=== PATIENT | male | born 1940 | race Caucasian/White ===

== ENCOUNTER 2017-12-06 15:26 | Emergency (ER) | payer OTHER ==
--- NOTE | 2017-12-06 15:39 | EDPHY ---
H & P Stated Complaint: VASQUES X 2 MONTHS TRAVELING SOON SO NEEDS TO BE CHECKED OUT Time Seen by Provider: 12/06/17 15:45 HPI/ROS: CHIEF COMPLAINT: Headache HISTORY OF PRESENT ILLNESS: This is a 77-year-old male in general good health who presents with 2 months of bifrontal headache. It was his impression that this was likely sinus disease and he has been taking daily Claritin and Sudafed for almost the past 2 months. He denies sinus drainage, fever, cough, or shortness of breath. Aside from an occasional naproxen he has not used any other medication to treat this headache. He tells me that it is a constant dull aching sensation across his forehead. He rates it as a "3/10". It is worse when he coughs or sneezes. He has had no head trauma. He does not use any blood thinners. No change in vision, confusion, difficulty with speech, numbness, or weakness. He has not had any tearing or flushing with this headache. REVIEW OF SYSTEMS: A ten system review of systems was performed and is negative with the exception of the items mentioned in the HPI. Past medical history: Obstructive sleep apnea Past surgical history: Right ankle replacement Family history: Father with coronary artery disease, mother at age 94. Social history: He works as a resource management specialist. Has a 14-year-old son, shared custody. No tobacco use. Social alcohol use. No illicits. General Appearance: Alert. Vital signs reviewed. Eyes: Pupils equal and round, no conjunctival injection, no discharge. Anicteric. No temporal artery tenderness. ENT, Mouth: Mucous membranes are moist, no oropharyngeal erythema or edema. Neck: No lymphadenopathy, supple. Respiratory: Lungs are clear to auscultation; no wheezes, rales, or rhonchi. Cardiovascular: Regular rate and rhythm; no murmur, rub, or gallop. Gastrointestinal: Abdomen is soft and nontender, no masses or organomegaly, bowel sounds normal. Skin: Warm and dry, no rashes on exposed skin, normal color. Back: Nontender to palpation over the thoracolumbar spine. No CVAT. Extremities: No lower extremity edema, no calf tenderness or swelling. Neurological: Alert and oriented. Moving all four extremities easily and equally. Cranial nerves II through XII are examined and are intact (visual acuity not tested). Strength is 5 over 5 bilaterally with testing of all major motor groups. Sensation is intact to light touch over all 4 extremities. Deep tendon reflexes are 2+ in the biceps and knees bilaterally. Gait is normal. Hgofbz-xu-[id number] is performed accurately. Psychiatric: Normal affect. - Personal History Current Tetanus Diphtheria and Acellular Pertussis (TDAP): Yes - Medical/Surgical History Hx Asthma: No Hx Chronic Respiratory Disease: No Hx Diabetes: No Hx Cardiac Disease: No Hx Renal Disease: No Hx Cirrhosis: No Hx Alcoholism: No Hx HIV/AIDS: No Hx Splenectomy or Spleen Trauma: No Other PMH: depression, anxiety, GARETH, - Social History Smoking Status: Former smoker Constitutional: Initial Vital Signs Temperature (C) 37 C 12/06/17 15:29 Heart Rate 98 12/06/17 15:29 Respiratory Rate 18 12/06/17 15:29 Blood Pressure 166/75 H 12/06/17 15:29 O2 Sat (%) 95 12/06/17 15:29 O2 Delivery Mode Room Air Allergies/Adverse Reactions: No Known Allergies Allergy (Verified 12/06/17 15:29) Home Medications: Medication Instructions Recorded Alfuzosin Hcl [Alfuzosin Hcl Er] 10 mg PO DAILY 01/24/16 Lamotrigine [Lamictal Xr] 250 mg PO DAILY 01/24/16 Modafinil [Provigil 100 mg (*)] 200 mg PO DAILY PRN #0 tab 01/24/16 clonazePAM [Klonopin (*)] 0.5 mg PO DAILY #0 tab 01/24/16 oxyCODONE IR [Oxycodone Ir (*)] 5 - 15 mg PO Q3HRS PRN #0 tab 01/24/16 Doxycycline Monohydrate 02/02/16 Medical Decision Making ED Course/Re-evaluation: Patient received 650 mg Tylenol in the emergency department. Persistent VASQUES--no temporal artery tenderness or visual problems, doubt temporal arteritis (VASQUES is bilateral), symptoms not consistent with cluster VASQUES, no trauma and CT negative for SDH, SAH, or evidence of mass, nothing to suggest infectious etiology. I reviewed the CT scan of his brain and discussed it with Dr. Solitario Cat. This study is normal. There is no evidence of sinus disease. I am recommending symptomatic treatment, follow up with his PCP, and follow up with a neurologist as needed. He has a normal neurologic exam and I do not feel that additional imaging or evaluation is needed today. I have advised him to discontinue the OTC sinus medications. I am recommending tylenol. He is aware that his blood pressure was elevated today. He will have it rechecked. I stressed importance of following up on BP and on persistent headache. I do not think that his VASQUES is due to hypertension and he does not think that his BP is usually high. Differential Diagnosis: Headache including but not limited to subarachnoid hemorrhage, migraine headache , tension headache and infectious causes such as meningitis, pharyngitis and sinusitis. - Data Points Medications Given: Discontinued Medications Acetaminophen (Tylenol) 650 mg PO EDNOW ONE Stop: 12/06/17 16:12 Last Admin: 12/06/17 16:18 Dose: 650 mg Departure - Departure Disposition: Home, Routine, Self-Care Clinical Impression: Headache Qualifiers: Headache type: unspecified Headache chronicity pattern: chronic headache Intractability: intractable Qualified Code(s): R51 - Headache Condition: Good Instructions: Acute Headache (ED) Additional Instructions: As we discussed, the CT scan of her head does not reveal a cause for your headache. Your sinuses look normal. I recommend that you discontinue the sinus medications you have been taking. I also recommend that you start taking pvak-hhv-[id number] medication for treatment of the headache pain. I am providing you with some dosing guidelines. I am referring you to the communication center coordinator neurologist or you may see a neurologist through the [facility] system. You should also follow up with your primary care provider. If you have a change in your symptoms-- worsening headache, vision changes, new numbness or weakness--you should be re- evaluated immediately. Adult Pain & Fever Control: We recommend Acetaminophen (Tylenol) and Ibuprofen (Motrin,Advil) for pain and fever control. When fever is high or pain severe, both drugs can be used at the same time, but at different intervals. Please note the time differences. Your dose is: Acetaminophen 650mg every 4 to 6 hours Ibuprofen 400mg every 8 hours with food OR Naproxen Sodium (Aleve) every 12 hours. Note: do not take Acetaminophen with Hydrocodone (Vicodin, Lortab) or Oycodone (Percocet). These medications also contain Acetaminophen. No more than 3000mg of Acetaminophen should be taken in 24 hours (for an adult). Referrals: NOLBERTO LINARES [Other] - As per Instructions Bang Henley DO [Doctor of Osteopathy] - As per Instructions
[2017-12-06] MEDS ORDERED: ACETAMINOPHEN 325 MG TAB PO ONE (16:11)
[2017-12-06 17:45] VITALS: BP 149/91
== END 2017-12-06 17:45 | disposition home or self-care (01) ==
DX: R51 Headache (principal); G47.33 Obstructive sleep apnea (adult) (pediatric); F32.9 Major depressive disorder, single episode, unspecified; F41.9 Anxiety disorder, unspecified

== ENCOUNTER 2018-03-05 16:10 | Observation (INO) | payer OTHER ==
[2018-03-05] MEDS ORDERED: NS 1,000 ML IV ONE (17:48)
[2018-03-05 17:57] LABS: PLATELET COUNT 218 10^3/uL (150-400)
[2018-03-05 18:05] LABS: INR 1.03 (0.83-1.16); PROTIME(PATIENT) 13.7 SEC (12.0-15.0)
[2018-03-05] MEDS ORDERED: ONDANSETRON 4 MG/2 ML VIAL IVP PRN (19:02)
[2018-03-05] MEDS ORDERED: ACETAMINOPHEN 325 MG TAB PO PRN (19:02)
[2018-03-05] MEDS ORDERED: ONDANSETRON DISINTEGRATING 4 MG TAB PO PRN (19:02)
[2018-03-05] MEDS ORDERED: PEG 3350/NA SULF,BICARB,CL/KCL (GAVILYTE-G) 4000 ML BTL PO ONE (19:04)
--- NOTE | 2018-03-05 19:49 | PDGENHP ---
<Almaz Steel - Last Filed: 03/05/18 19:56> History and Physical - Chief Complaint Hematochezia - History of Present Illness 77 y/o male presents to the emergency room with c/o hematochezia. Onset was yesterday and stool is described as maroon color and formed. He has had 3-4 bowel movements, experiencing the same maroon color stool. He has never had this before. He denies kenji blood. No pain defecating. His last colonoscopy was 3 years ago in [place]; a benign polyp was removed and was instructed to repeat procedure in 5 years. He reports eating well-cooked [place] and had red wine two nights ago. He denies nausea, vomiting, abdominal pain, dysuria, hematuria, fevers, chills. He does have a history of external hemorrhoids and constipation - last hemorrhoids episode was last month and he denies constipation currently. Stool occult test positive for blood. Past Medical/Surgical History 1. Hx hemorrhoids 2. Hx constipation 3. Anxiety 4. Depression 5. Sleep apnea w/ CPAP 6. BPH Social 1. Moved from [place], [place] 3 years ago to be closer to his teenage son 2. 3. Denies tobacco or illicit drug use. Rarely drinks alcohol. Approximately 2 drinks/week. 4. Employed as a recruiting consultant, studying for PhD in Organizational Development Vital Signs 135/93 83 HR 16 Respirations 36.6c 94% RA History Information - Allergies/Home Medication List Allergies/Adverse Reactions: No Known Allergies Allergy (Verified 03/05/18 16:13) Home Medications: Alfuzosin HCl [Alfuzosin HCl ER] 10 mg PO HS 03/05/18 [Last Taken 03/04/18] Modafinil [Provigil 100 mg (*)] 50 - 100 mg PO DAILY PRN 03/05/18 [Last Taken Unknown] clonazePAM [Klonopin (*)] 0.25 mg PO DAILY 03/05/18 [Last Taken Unknown] clonazePAM [Klonopin (*)] 0.25 mg PO DAILY PRN 03/05/18 [Last Taken Unknown] lamoTRIgine [LamICTAL 100 MG (*)] 100 mg PO HS 03/05/18 [Last Taken 03/04/18] traZODone [traZODONE 100MG (*)] 200 mg PO HS 03/05/18 [Last Taken Unknown] I have personally reviewed and updated: family history, medical history, social history, surgical history Past Medical History: Sere HPI List - Surgical History Additional surgical history: See HPI List - Family History Positive for: non-pertinent - Social History Smoking Status: Former smoker Alcohol Use: Rarely Drug Use: None Review of Systems Review of Systems: ROS: 10pt was reviewed & negative except for what was stated in HPI & below Constitutional: Reports: no symptoms EENMT: Reports: no symptoms Cardiac: Reports: no symptoms Respiratory: Reports: no symptoms Gastrointestinal: Reports: blood streaked stools Genitourinary: Reports: no symptoms Muscolosketal: Reports: no symptoms Skin: Reports: no symptoms Neurological: Reports: no symptoms (Hx of anxiety and depression; not currently experiencing these symptoms; takes medications) Hematologic/Lymphatic: Reports: no symptoms Immunologic/Allergy: Reports: no symptoms Physical Exam Physical Exam: Lab data reviewed and was unremarkable. Temp Pulse Resp BP Pulse Ox 36.6 C 76 16 150/89 H 98 03/05/18 16:14 03/05/18 19:30 03/05/18 19:30 03/05/18 19:30 03/05/18 19:30 Constitutional: no apparent distress, appears nourished, not in pain Eyes: PERRL, anicteric sclera, EOMI Ears, Nose, Mouth, Throat: moist mucous membranes, hearing normal, ears appear normal, no oral mucosal ulcers Cardiovascular: regular rate and rhythym, no murmur, rub, or gallop, No edema Peripheral Pulses: 2+: dorsalis-pedis (R) (Radial 2+), dorsalis-pedis (L) ( Radial 2+) Respiratory: no respiratory distress, no rales or rhonchi, clear to auscultation Gastrointestinal: normoactive bowel sounds, soft, non-tender abdomen, no palpable masses Genitourinary: no bladder fullness, no bladder tenderness Skin: warm, normal color, no rashes or abrasions, no fluctuance, no induration, No mottled Musculoskeletal: full muscle strength, no muscle tenderness, normal joint ROM, no joint effusions Neurologic: AAOx3, sensation intact bilaterally, CN II-XII Intact Psychiatric: interacting appropriately, not anxious, not encephalopathic, thought process linear Lymph, Heme, Immunologic: no cervical LAD, no supraclavicular LAD Lab Data & Imaging Review 03/05/18 17:30 03/05/18 17:30 WBC 5.04 10^3/uL (3.80-9.50) 03/05/18 17:30 RBC 4.82 10^6/uL (4.40-6.38) 03/05/18 17:30 Hgb 15.4 g/dL (13.7-17.5) 03/05/18 17:30 Hct 44.4 % (40.0-51.0) 03/05/18 17:30 MCV 92.1 fL (81.5-99.8) 03/05/18 17:30 MCH 32.0 pg (27.9-34.1) 03/05/18 17:30 MCHC 34.7 g/dL (32.4-36.7) 03/05/18 17:30 RDW 13.3 % (11.5-15.2) 03/05/18 17:30 Plt Count 218 10^3/uL (150-400) 03/05/18 17:30 MPV 9.0 fL (8.7-11.7) 03/05/18 17:30 Neut % (Auto) 61.1 % (39.3-74.2) 03/05/18 17:30 Lymph % (Auto) 24.4 % (15.0-45.0) 03/05/18 17:30 Tate % (Auto) 7.1 % (4.5-13.0) 03/05/18 17:30 Eos % (Auto) 5.8 % (0.6-7.6) 03/05/18 17:30 Baso % (Auto) 1.4 % (0.3-1.7) 03/05/18 17:30 Nucleat RBC Rel Count 0.0 % (0.0-0.2) 03/05/18 17:30 Absolute Neuts (auto) 3.08 10^3/uL (1.70-6.50) 03/05/18 17:30 Absolute Lymphs (auto) 1.23 10^3/uL (1.00-3.00) 03/05/18 17:30 Absolute Monos (auto) 0.36 10^3/uL (0.30-0.80) 03/05/18 17:30 Absolute Eos (auto) 0.29 10^3/uL (0.03-0.40) 03/05/18 17:30 Absolute Basos (auto) 0.07 10^3/uL (0.02-0.10) 03/05/18 17:30 Absolute Nucleated RBC 0.00 10^3/uL (0-0.01) 03/05/18 17:30 Immature Gran % 0.2 % (0.0-1.1) 03/05/18 17:30 Immature Gran # 0.01 10^3/uL (0.00-0.10) 03/05/18 17:30 PT 13.7 SEC (12.0-15.0) 03/05/18 17:30 INR 1.03 (0.83-1.16) 03/05/18 17:30 APTT 24.4 SEC (23.0-38.0) 03/05/18 17:30 Sodium 139 mEq/L (135-145) 03/05/18 17:30 Potassium 4.7 mEq/L (3.5-5.2) 03/05/18 17:30 Chloride 111 mEq/L (97-110) H 03/05/18 17:30 Carbon Dioxide 23 mEq/l (22-31) 03/05/18 17:30 Anion Gap 5 mEq/L (6-14) L 03/05/18 17:30 BUN 21 mg/dL (7-23) 03/05/18 17:30 Creatinine 1.3 mg/dL (0.7-1.3) 03/05/18 17:30 Estimated GFR 54 03/05/18 17:30 Glucose 93 mg/dL (70-100) 03/05/18 17:30 Calcium 9.1 mg/dL (8.5-10.4) 03/05/18 17:30 Total Bilirubin 0.4 mg/dL (0.1-1.4) 03/05/18 17:30 Conjugated Bilirubin 0.3 mg/dL (0.0-0.5) 03/05/18 17:30 Unconjugated Bilirubin 0.1 mg/dL (0.0-1.1) 03/05/18 17:30 AST 21 IU/L (17-59) 03/05/18 17:30 ALT 32 IU/L (21-72) 03/05/18 17:30 Alkaline Phosphatase 93 IU/L (38-126) 03/05/18 17:30 Total Protein 6.2 g/dL (6.3-8.2) L 03/05/18 17:30 Albumin 3.6 g/dL (3.5-5.0) 03/05/18 17:30 Stool Occult Bld Scrn POSITIVE (NEGATIVE) H 03/05/18 17:45 Assessment & Plan Plan: 77 y/o male presents with acute hematochezia with unknown etiology. VSS and labwork unremarkable. 1. Hematochezia: Dr. Bullock will perform colonoscopy tomorrow -Clear liquid diet now, NPO at midnight tonight -Bowel prep -If any nausea, anti-emetics PRN -CBC/CMP tomorrow -IV NS -Q4 Vital signs 2.Anxiety: may continue of Klonopin 3.BPH: may continue of alfuzosin 4.Depression: may continue lamotrigine 5.Sleep apnea: hold modafinil. If he has difficulty sleeping tonight, he may continue trazodone. Diet: Clears now, NPO at midnight tonight VTE ppx: SCDs Code: Full Dispo: Admit to obs <Lexi Villatoro - Last Filed: 03/06/18 04:15> History and Physical - History of Present Illness Review of Systems Review of Systems: Physical Exam Physical Exam: Temp Pulse Resp BP Pulse Ox 36.3 C 79 16 136/84 H 92 03/06/18 03:51 03/06/18 03:51 03/06/18 03:51 03/06/18 03:51 03/06/18 03:51 Lab Data & Imaging Review 03/05/18 17:30 03/05/18 17:30 WBC 5.04 10^3/uL (3.80-9.50) 03/05/18 17:30 RBC 4.82 10^6/uL (4.40-6.38) 03/05/18 17:30 Hgb 15.4 g/dL (13.7-17.5) 03/05/18 17:30 Hct 44.4 % (40.0-51.0) 03/05/18 17:30 MCV 92.1 fL (81.5-99.8) 03/05/18 17:30 MCH 32.0 pg (27.9-34.1) 03/05/18 17:30 MCHC 34.7 g/dL (32.4-36.7) 03/05/18 17:30 RDW 13.3 % (11.5-15.2) 03/05/18 17:30 Plt Count 218 10^3/uL (150-400) 03/05/18 17:30 MPV 9.0 fL (8.7-11.7) 03/05/18 17:30 Neut % (Auto) 61.1 % (39.3-74.2) 03/05/18 17:30 Lymph % (Auto) 24.4 % (15.0-45.0) 03/05/18 17:30 Tate % (Auto) 7.1 % (4.5-13.0) 03/05/18 17:30 Eos % (Auto) 5.8 % (0.6-7.6) 03/05/18 17:30 Baso % (Auto) 1.4 % (0.3-1.7) 03/05/18 17:30 Nucleat RBC Rel Count 0.0 % (0.0-0.2) 03/05/18 17:30 Absolute Neuts (auto) 3.08 10^3/uL (1.70-6.50) 03/05/18 17:30 Absolute Lymphs (auto) 1.23 10^3/uL (1.00-3.00) 03/05/18 17:30 Absolute Monos (auto) 0.36 10^3/uL (0.30-0.80) 03/05/18 17:30 Absolute Eos (auto) 0.29 10^3/uL (0.03-0.40) 03/05/18 17:30 Absolute Basos (auto) 0.07 10^3/uL (0.02-0.10) 03/05/18 17:30 Absolute Nucleated RBC 0.00 10^3/uL (0-0.01) 03/05/18 17:30 Immature Gran % 0.2 % (0.0-1.1) 03/05/18 17:30 Immature Gran # 0.01 10^3/uL (0.00-0.10) 03/05/18 17:30 PT 13.7 SEC (12.0-15.0) 03/05/18 17:30 INR 1.03 (0.83-1.16) 03/05/18 17:30 APTT 24.4 SEC (23.0-38.0) 03/05/18 17:30 Sodium 139 mEq/L (135-145) 03/05/18 17:30 Potassium 4.7 mEq/L (3.5-5.2) 03/05/18 17:30 Chloride 111 mEq/L (97-110) H 03/05/18 17:30 Carbon Dioxide 23 mEq/l (22-31) 03/05/18 17:30 Anion Gap 5 mEq/L (6-14) L 03/05/18 17:30 BUN 21 mg/dL (7-23) 03/05/18 17:30 Creatinine 1.3 mg/dL (0.7-1.3) 03/05/18 17:30 Estimated GFR 54 03/05/18 17:30 Glucose 93 mg/dL (70-100) 03/05/18 17:30 Calcium 9.1 mg/dL (8.5-10.4) 03/05/18 17:30 Total Bilirubin 0.4 mg/dL (0.1-1.4) 03/05/18 17:30 Conjugated Bilirubin 0.3 mg/dL (0.0-0.5) 03/05/18 17:30 Unconjugated Bilirubin 0.1 mg/dL (0.0-1.1) 03/05/18 17:30 AST 21 IU/L (17-59) 03/05/18 17:30 ALT 32 IU/L (21-72) 03/05/18 17:30 Alkaline Phosphatase 93 IU/L (38-126) 03/05/18 17:30 Total Protein 6.2 g/dL (6.3-8.2) L 03/05/18 17:30 Albumin 3.6 g/dL (3.5-5.0) 03/05/18 17:30 Stool Occult Bld Scrn POSITIVE (NEGATIVE) H 03/05/18 17:45 Assessment & Plan Assessment: GI bleed (Acute) Plan: Physician Addendum: Agree w/ above. 77yo M w/ hematochezia, nl colonoscopy 3ya. Plan for colonoscopy in AM.
[2018-03-05] MEDS ORDERED: NS 1,000 ML IV SCH (20:15)
--- NOTE | 2018-03-05 22:13 | EDPHY ---
H & P Time Seen by Provider: 03/05/18 16:48 HPI/ROS: Chief complaint. Dark stools HPI. Patient is a 77-year-old male who presents emergency department with complaint of deep maroon-colored stools that began yesterday. He has had multiple bowel movements all which are deep maroon in color. They are not he has no diarrhea. The stools are solid. He does have hemorrhoids but when he has an inflamed hemorrhoid is bright red blood on toilet paper and this is different. He has no abdominal pain or nausea vomiting. No history of colon issues. Last colonoscopy 3 years ago and other than a benign polyp was normal. No history of colon cancer in the family. No chest pain or shortness of breath. ROS 10 systems were reviewed and negative with the exception of the elements mentioned in the history of present illness Past Medical/Surgical History: Past medical history is significant for depression, anxiety, ankle replacement, cataract surgery Social History: Single, nonsmoker, no alcohol Smoking Status: Former smoker Physical Exam: General Appearance: Alert well-developed male mild distress vital signs significant heart rate 98 Eyes: Pupils equal and round no pallor or injection. ENT, Mouth: Mucous membranes are moist. Respiratory: There are no retractions, lungs are clear to auscultation. Cardiovascular: Regular rate and rhythm. Gastrointestinal: Abdomen is soft and nontender, no masses, bowel sounds normal. Rectal exam shows copious maroon stool. Neurological: Awake and alert, sensory and motor exams grossly normal. Skin: Warm and dry, no rashes. Musculoskeletal: Neck is supple nontender. Extremities symmetrical, full range of motion. Psychiatric: Patient is oriented X 3, there is no agitation. Constitutional: Initial Vital Signs Temperature (C) 36.6 C 03/05/18 16:14 Heart Rate 98 03/05/18 16:14 Respiratory Rate 16 03/05/18 16:14 Blood Pressure 153/85 H 03/05/18 16:14 O2 Sat (%) 96 03/05/18 16:14 O2 Delivery Mode Room Air Allergies/Adverse Reactions: No Known Allergies Allergy (Verified 03/05/18 16:13) Home Medications: Medication Instructions Recorded Alfuzosin HCl [Alfuzosin HCl ER] 10 mg PO HS 03/05/18 Modafinil [Provigil 100 mg (*)] 50 - 100 mg PO DAILY PRN 03/05/18 clonazePAM [Klonopin (*)] 0.25 mg PO DAILY 03/05/18 clonazePAM [Klonopin (*)] 0.25 mg PO DAILY PRN 03/05/18 lamoTRIgine [LamICTAL 100 MG (*)] 100 mg PO HS 03/05/18 traZODone [traZODONE 100MG (*)] 200 mg PO HS 03/05/18 Medical Decision Making Procedures: IV normal saline, monitor ED Course/Re-evaluation: On re-evaluation after 1 L saline heart rate is now 83. The patient and I discussed laboratory evaluation, treatment plan including recommendation for admission. He expresses understanding and agreement I consulted and discussed the case with Dr. Bullock for Gastroenterology who will see the patient in the morning and perform colonoscopy I consulted discussed the case with Dr. Villatoro, hospitalist, who agrees to the admission Differential Diagnosis: Lower GI bleeding. H&H is currently stable. Patient initially with elevated heart rate now more normal after fluids. I have considered diverticulitis though the patient has no abdominal pain or fever. Considered colon cancer. - Data Points Laboratory Results: Laboratory Results 03/05/18 17:30 03/05/18 17:30 03/05/18 03/05/18 03/05/18 17:45 17:30 17:30 WBC RBC Hgb Hct MCV MCH MCHC RDW Plt Count MPV Neut % (Auto) Lymph % (Auto) Avery % (Auto) Eos % (Auto) Baso % (Auto) Nucleat RBC Rel Count Absolute Neuts (auto) Absolute Lymphs (auto) Absolute Monos (auto) Absolute Eos (auto) Absolute Basos (auto) Absolute Nucleated RBC Immature Gran % Immature Gran # PT 13.7 SEC SEC (12.0-15.0) INR 1.03 (0.83-1.16) APTT 24.4 SEC SEC (23.0-38.0) Sodium 139 mEq/L mEq/L (135-145) Potassium 4.7 mEq/L mEq/L (3.5-5.2) Chloride 111 mEq/L H mEq/L (97-110) Carbon Dioxide 23 mEq/l mEq/l (22-31) Anion Gap 5 mEq/L L mEq/L (6-14) BUN 21 mg/dL mg/dL (7-23) Creatinine 1.3 mg/dL mg/dL (0.7-1.3) Estimated GFR 54 Glucose 93 mg/dL mg/dL (70-100) Calcium 9.1 mg/dL mg/dL (8.5-10.4) Total Bilirubin 0.4 mg/dL mg/dL (0.1-1.4) Conjugated Bilirubin 0.3 mg/dL mg/dL (0.0-0.5) Unconjugated Bilirubin 0.1 mg/dL mg/dL (0.0-1.1) AST 21 IU/L IU/L (17-59) ALT 32 IU/L IU/L (21-72) Alkaline Phosphatase 93 IU/L IU/L (38-126) Total Protein 6.2 g/dL L g/dL (6.3-8.2) Albumin 3.6 g/dL g/dL (3.5-5.0) Stool Occult Bld Scrn POSITIVE H (NEGATIVE) 03/05/18 17:30 WBC 5.04 10^3/uL 10^3/uL (3.80-9.50) RBC 4.82 10^6/uL 10^6/uL (4.40-6.38) Hgb 15.4 g/dL g/dL (13.7-17.5) Hct 44.4 % % (40.0-51.0) MCV 92.1 fL fL (81.5-99.8) MCH 32.0 pg pg (27.9-34.1) MCHC 34.7 g/dL g/dL (32.4-36.7) RDW 13.3 % % (11.5-15.2) Plt Count 218 10^3/uL 10^3/uL (150-400) MPV 9.0 fL fL (8.7-11.7) Neut % (Auto) 61.1 % % (39.3-74.2) Lymph % (Auto) 24.4 % % (15.0-45.0) Avery % (Auto) 7.1 % % (4.5-13.0) Eos % (Auto) 5.8 % % (0.6-7.6) Baso % (Auto) 1.4 % % (0.3-1.7) Nucleat RBC Rel Count 0.0 % % (0.0-0.2) Absolute Neuts (auto) 3.08 10^3/uL 10^3/uL (1.70-6.50) Absolute Lymphs (auto) 1.23 10^3/uL 10^3/uL (1.00-3.00) Absolute Monos (auto) 0.36 10^3/uL 10^3/uL (0.30-0.80) Absolute Eos (auto) 0.29 10^3/uL 10^3/uL (0.03-0.40) Absolute Basos (auto) 0.07 10^3/uL 10^3/uL (0.02-0.10) Absolute Nucleated RBC 0.00 10^3/uL 10^3/uL (0-0.01) Immature Gran % 0.2 % % (0.0-1.1) Immature Gran # 0.01 10^3/uL 10^3/uL (0.00-0.10) PT INR APTT Sodium Potassium Chloride Carbon Dioxide Anion Gap BUN Creatinine Estimated GFR Glucose Calcium Total Bilirubin Conjugated Bilirubin Unconjugated Bilirubin AST ALT Alkaline Phosphatase Total Protein Albumin Stool Occult Bld Scrn Medications Given: Discontinued Medications Sodium Chloride (Ns) 1,000 mls @ 0 mls/hr IV EDNOW ONE; Wide Open PRN Reason: Protocol Stop: 03/05/18 17:49 Last Admin: 03/05/18 18:01 Dose: 1,000 mls Polyethylene Glycol/Electrolytes (Gavilyte - G) 4,000 ml PO ONCE ONE Stop: 03/05/18 19:05 Last Admin: 03/05/18 20:42 Dose: 4,000 ml Departure - Departure Disposition: [facility] Acute Clinical Impression: GI bleed Qualifiers: GI bleed type/associated pathology: unspecified gastrointestinal hemorrhage type Qualified Code(s): K92.2 - Gastrointestinal hemorrhage, unspecified Condition: Fair
[2018-03-06 05:24] LABS: PLATELET COUNT 201 10^3/uL (150-400)
--- NOTE | 2018-03-06 10:27 | ASMTCMCOM ---
CM Note CM Note Notes: Pt is a 77 y/o man admitted for hematochezia. Pt will most likely d/c independent when medically stable. No therapies ordered at this time. CM available for changes. Plan: Independent Date Signed: 03/06/2018 10:27 AM Electronically Signed By:ANDREI Healy
[2018-03-06] MEDS ORDERED: clonazePAM 0.5 MG TAB PO PRN (11:12)
[2018-03-06] MEDS ORDERED: MODAFINIL 100 MG TAB PO PRN (11:12)
[2018-03-06] MEDS ORDERED: clonazePAM 0.5 MG TAB PO SCH (11:15)
--- NOTE | 2018-03-06 11:16 | HOSPPROG ---
Hospitalist Progress Note Assessment/Plan: 77 yo M w maroon stool hematochezia: source unclear hct stable some nsaids, no beets, min etoh and no tobacco h/o screening colonoscopies bph: continue alpha karey htn: follow proph: active bleed scd'd dispo: pending endoscopy Subjective: no difficulty w prep. caase d/w dr cm Objective: Vital Signs Temp Pulse Resp BP Pulse Ox 36.3 C 80 16 145/73 H 91 L 03/06/18 07:35 03/06/18 07:35 03/06/18 07:35 03/06/18 07:35 03/06/18 07:35 Laboratory Results 03/06/18 05:01 03/06/18 05:01 03/05/18 03/06/18 03/07/18 05:59 05:59 05:59 Intake Total 1000 Output Total 1 Balance 999 PT 13.7 SEC (12.0-15.0) 03/05/18 17:30 INR 1.03 (0.83-1.16) 03/05/18 17:30 - Physical Exam Constitutional: no apparent distress, appears nourished Eyes: PERRL, anicteric sclera Ears, Nose, Mouth, Throat: moist mucous membranes, hearing normal Cardiovascular: regular rate and rhythym, no murmur, rub, or gallop Respiratory: no respiratory distress, no rales or rhonchi Gastrointestinal: normoactive bowel sounds, soft, non-tender abdomen Genitourinary: no bladder fullness, No ellis in urethra Skin: warm, normal color Musculoskeletal: full muscle strength Neurologic: AAOx3 ICD10 Worksheet Patient Problems: Problems Problem Status Onset GI bleed Acute Failed total joint replacement Acute Headache Acute
[2018-03-06] MEDS ORDERED: LR 1,000 ML IV ONE (14:28)
[2018-03-06] MEDS ORDERED: PROPOFOL/EMULSION 500 MG/50 ML BOTTLE IV ONE (15:01)
[2018-03-06] MEDS ORDERED: LIDOCAINE 2% 5 ML SDV ONE (15:02)
[2018-03-06] MEDS ORDERED: ALBUTEROL 3 ML DEYVIAL IH PRN (15:05)
[2018-03-06] MEDS ORDERED: ACETAMINOPHEN 500 MG TAB PO PRN (15:05)
[2018-03-06] MEDS ORDERED: fentaNYL 100 MCG/2 ML INJ IVP PRN (15:05)
[2018-03-06] MEDS ORDERED: NALOXONE HCL 0.4 MG/ML INJ IVP PRN (15:05)
[2018-03-06] MEDS ORDERED: ONDANSETRON 4 MG/2 ML VIAL IVP PRN (15:05)
--- NOTE | 2018-03-06 15:06 | PDANEPAE ---
ANE History of Present Illness EGD & Colonoscopy ANE Past Medical History - Cardiovascular History Hx Hypertension: No Hx Arrhythmias: No Hx Chest Pain: No Hx Coronary Artery / Peripheral Vascular Disease: No Hx CHF / Valvular Disease: No Hx Palpitations: No - Pulmonary History Hx COPD: No Hx Asthma/Reactive Airway Disease: No Hx Recent Upper Respiratory Infection: No Hx Oxygen in Use at Home: No Hx Sleep Apnea: Yes Sleep Apnea Screening Result - Last Documented: Positive - Neurologic History Hx Cerebrovascular Accident: No Hx Seizures: No Hx Dementia: No - Endocrine History Hx Diabetes: No - Renal History Hx Renal Disorders: No - Liver History Hx Hepatic Disorders: No - Neurological & Psychiatric Hx Hx Neurological and Psychiatric Disorders: Yes Neurological / Psychiatric History Comment: mild depression. mild anxiety - Cancer History Hx Cancer: No - Congenital Disorder History Hx Congenital Disorders: No - GI History Hx Gastrointestinal Disorders: No - Other Health History Other Health History: none - Chronic Pain History Chronic Pain: No - Surgical History Prior Surgeries: right ankle arthroplasty 2013. cataract surgery in the last 6 months. bilateral knee scopes. right shoulder scope 2001 ANE Review of Systems Review of Systems: ANE Patient History - Allergies Allergies/Adverse Reactions: No Known Allergies Allergy (Verified 03/05/18 16:13) - Home Medications Home Medications: Alfuzosin HCl [Alfuzosin HCl ER] 10 mg PO HS 03/05/18 [Last Taken 03/04/18] Modafinil [Provigil 100 mg (*)] 50 - 100 mg PO DAILY PRN 03/05/18 [Last Taken Unknown] clonazePAM [Klonopin (*)] 0.25 mg PO DAILY 03/05/18 [Last Taken Unknown] clonazePAM [Klonopin (*)] 0.25 mg PO DAILY PRN 03/05/18 [Last Taken Unknown] lamoTRIgine [LamICTAL 100 MG (*)] 100 mg PO HS 03/05/18 [Last Taken 03/04/18] traZODone [traZODONE 100MG (*)] 200 mg PO HS 03/05/18 [Last Taken Unknown] - NPO status NPO Since - Liquids (Date): 03/06/18 NPO Since - Liquids (Time): 00:00 NPO Since - Solids (Date): 03/05/18 NPO Since - Solids (Time): 12:00 - Smoking Hx Smoking Status: Former smoker - Alcohol Use Alcohol Use: Rarely - Family Anes Hx Family Hx Anesthesia Complications: none ANE Labs/Vital Signs - Labs Result Diagrams: 03/06/18 05:01 03/06/18 05:01 - Vital Signs Blood Pressure: 161/92 Heart Rate: 75 Respiratory Rate: 16 O2 Sat (%): 94 Height: 177.8 cm Weight: 86.18 kg ANE Physical Exam - Airway Neck exam: FROM Mallampati Score: Class 2 Mouth exam: normal dental/mouth exam - Pulmonary Pulmonary: clear to auscultation - Cardiovascular Cardiovascular: regular rate and rhythym - ASA Status ASA Status: I ANE Anesthesia Plan Anesthesia Plan: GA with mask
--- NOTE | 2018-03-06 15:49 | GIREPORT ---
Former[facility], Later [facility] Surgical Services - Endoscopy Department Patient Name: Ramesh Galvan Procedure Date: 03/06/2018 3:03 PM Patient Type: Inpatient Attending MD/ ER Physician: Mendel Bullock MD Procedure: Upper GI endoscopy Indications: Hematochezia Providers: Mendel Bullock MD Medicines: Propofol per Anesthesia Complications: No immediate complications. Description of Procedure: After obtaining informed consent, the endoscope was passed under direct vision. Throughout the procedure, the patient's blood pressure, pulse, and oxygen saturations were monitored continuously. The Endoscope was intro duced through the mouth, and advanced to the second part of duodenum. The [facility] er GI endoscopy was accomplished without difficulty. The patient tolerated th e procedure well. Findings: LA Grade C (one or more mucosal breaks continuous between tops of 2 or more mucosal folds, less than 75% circumference) esophagitis with no bleedin g was found 32 to 37 cm from the incisors. One benign-appearing, intrinsic stenosis was found at the gastroesophag eal junction. This stenosis was moderately severe and measured 1.2 cm (inne r diameter) x 1 cm (in length). The stenosis was traversed. A medium-sized hiatal hernia was present. Localized mild inflammation characterized by erosions and erythema was found in the duodenal bulb. Estimated Blood Loss: Estimated blood loss: none. Post Op Diagnosis: - LA Grade C reflux esophagitis. - Benign-appearing esophageal stenosis. - Medium-sized hiatal hernia. - Acute duodenitis. - No specimens collected. Recommendation: - Use Protonix (pantoprazole) 40 mg PO BID. - Repeat upper endoscopy in 8 weeks for retreatment. - Perform a colonoscopy today. - Resume previous diet. - Continue present medications. - Patient has a contact number available for emergencies. The signs and symptoms of potential delayed complications were discussed with the pat ient. Return to normal activities tomorrow. Written discharge instructions we re provided to the patient. - Thank you for allowing me to be involved in the care of your patient. Attending Participation: I personally performed the entire procedure without the assistance of a fellow, resident or surg ical personal assistant. Mendel Bullock MD Mendel Bullock MD 03/06/2018 3:49:18 PM This report has been signed electronicallyDavid MD Ara Number of Addenda: 0 Note Initiated On: 03/06/2018 3:03 PM [email or web address]
--- NOTE | 2018-03-06 16:04 | GCON ---
DATE OF CONSULTATION: 03/06/2018 REFERRING PHYSICIAN: Lxei Villatoro DO REASON FOR CONSULTATION: Hematochezia. Dear Dr. Villatoro: Thank you very kindly for asking me to evaluate the patient in consultation for hematochezia. He is a very pleasant 77-year-old gentleman with a past medical history of constipation, hemorrhoids, and s leep apnea, who was in his usual state of health up until yesterday when he had several bouts of abhishek on-colored stool. He describes the stool as being formed and without diarrhea. There was no abdomin al pain. Several further bowel movements were also bloody and maroon in color. In the emergency pradeep m, he was initially found to have a hematocrit of 44.4 with a repeat hematocrit today of 43.1. He sa ys that since admission, he has had no further hematochezia. He denies any abdominal pain or hematem esis. He is not on any blood thinners. His INR was 1.03. His BUN is slightly elevated at 21. He h as never had a previous gastrointestinal bleed. I am asked to assist with further evaluation and man agement. PAST MEDICAL HISTORY: Significant for constipation, history of hemorrhoids. He has had a personal h istory of colon polyps, with his last colonoscopy being 3 years ago in [place] where a polyp was r emoved. History of anxiety, depression, BPH, and sleep apnea. PAST SURGICAL HISTORY: None. SOCIAL HISTORY: The patient has moved from [place] 3 years ago. He is . No substance ab use. He does drink alcohol about twice a week. He is a automation consultant. FAMILY HISTORY: Negative for colon cancer or bleeding. MEDICATIONS: On admission include alfuzosin, Provigil, Klonopin, Lamictal, and trazodone. ALLERGIES: None. REVIEW OF SYSTEMS: CONSTITUTIONAL: No fever, chills, malaise, or night sweats. HEENT: No headache . No epistaxis. No visual disturbances. No difficulty swallowing. PULMONARY: No cough or shortne ss of breath. CARDIOVASCULAR: No chest pain or palpitations. GI: Per the HPI. MUSCULOSKELETAL: No joint pain, deformity. HEMATOLOGIC: No epistaxis or bruising. GENITOURINARY: No hematuria, fla nk pain or dysuria. ENDOCRINE: No heat or cold intolerance. DERMATOLOGIC: No jaundice, rash or hiv es. NEUROLOGIC: No paresthesias, weakness, or seizures. PHYSICAL EXAM: VITAL SIGNS: Blood pressure is 161/92, with a pulse of 75. Respirations are 16. Ox ygenation is 94% on room air. Temperature is 36.7. GENERAL: Healthy and alert-appearing male in no acute distress. HEENT: Normocephalic, atraumatic. Oropharynx clear. NECK: Supple. No adenopath y. PULMONARY: Clear to auscultation bilaterally. CARDIOVASCULAR: Regular rate and rhythm, without murmur, rub, or gallop. GI: Abdomen is soft, nontender, nondistended. No organomegaly. Bowel soun ds are present. RECTAL: Exam is clear, without blood. MUSCULOSKELETAL: No joint deformity, swelli ng or warmth. DERMATOLOGIC: No jaundice or rash. NEUROLOGIC: Alert to person, place, and time. C ranial nerves are normal. Motor exam is nonfocal. LABORATORY DATA: Database includes white blood count 6.4, hematocrit 43.1. Platelets are 201. INR i s 1.03. Sodium 140, potassium 4.4, chloride 112, bicarbonate 21, BUN 17, creatinine 1.2. LFTs are n ormal. IMPRESSION: 1. Hematochezia. 2. Mild anemia. 3. History of hemorrhoids. 4. Constipation. RECOMMENDATIONS: 1. N.p.o. 2. GoLYTELY bowel prep. 3. Twice daily PPI. 4. EGD and colonoscopy to evaluate his hematochezia. 5. Further recommendations to follow. /[id number]/MODL
[2018-03-06] MEDS ORDERED: PROPOFOL 200 MG/20 ML VIAL ONE (16:11)
--- NOTE | 2018-03-06 16:24 | POSTANESTH ---
Post Anesthetic Evaluation Cardiovascular Status: Normal, Stable Respiratory Status: Normal, Stable Level of Consciousness/Mental Status: Can Participate in Eval, Mildly Sleepy, Arousable Pain Control: Adequate, Prn Tx Ordered Nausea/Vomiting Control: Adequate, Prn Tx Ordered Complications Possibly Related to Anesthesia: None Noted
--- NOTE | 2018-03-06 16:36 | GIREPORT ---
[facility] Surgical Services - Endoscopy Department Patient Name: Ramesh Galvan Procedure Date: 03/06/2018 3:43 PM Patient Type: Inpatient Attending MD/ ER Physician: Mendel Bullock MD Procedure: Colonoscopy Indications: Hematochezia Providers: Mendel Bullock MD Medicines: Propofol per Anesthesia Complications: No immediate complications. Description of Procedure: After obtaining informed consent, the scope was passed under direct vis ion. Throughout the procedure, the patient's blood pressure, pulse, and oxyg en saturations were monitored continuously. The Colonoscope with irrigatio n channel was introduced through the anus and advanced to the cecum, identified by appendiceal orifice and ileocecal valve. The colonoscopy was performed without difficulty. The patient tolerated the procedure well. The quality of the bowel preparation was good. The ileocecal valve, appendi ceal orifice, and rectum were photographed. Findings: The perianal and digital rectal examinations were normal. Pertinent negatives include normal sphincter tone, no palpable rectal lesions and normal prostate (size, shape, and consistency). Multiple small and large-mouthed diverticula were found in the sigmoid colon. There was no evidence of diverticular bleeding. Estimated Blood Loss: Estimated blood loss: none. Post Op Diagnosis: - Moderate diverticulosis in the sigmoid colon. There was no evidence o f diverticular bleeding. - No specimens collected. - The exam is otherwise normal. - No cause for hematochezia. Recommendation: - Repeat colonoscopy is not recommended for screening purposes. - Return patient to hospital main for possible discharge same day. - Advance diet as tolerated. - Thank you for allowing me to be involved in the care of your patient. Attending Participation: I personally performed the entire procedure without the assistance of a fellow, resident or surg ical dental ceramist assistant. Mendel Bullock MD Mendel Bullock MD 03/06/2018 4:35:53 PM This report has been signed electronicallyDavid MD Ara Number of Addenda: 0 Note Initiated On: 03/06/2018 3:43 PM Total Procedure Duration Time 0 hours 22 minutes 36 seconds [email or web address]
[2018-03-06 19:15] VITALS: BP 153/89
[2018-03-06] MEDS ORDERED: lamoTRIgine 100 MG TAB PO SCH (21:00)
[2018-03-06] MEDS ORDERED: traZODone 100 MG TAB PO SCH (21:00)
[2018-03-06] MEDS ORDERED: Alfuzosin Hcl [Alfuzosin Hcl Er] 10 MG PO SCH (21:00)
== END 2018-03-06 20:38 | disposition home or self-care (01) ==
LOC: INTOOBSV 18:43 → F3E 20:07
PROVIDERS: ADMIT Internal Medicine; ATTEND Internal Medicine
PROC: 0DJD8ZZ Inspection of Lower Intestinal Tract, Via Natural or Artificial Opening Endoscopic (ICD-10-PCS; principal; 2018-03-05)
PROC: 0DJ08ZZ Inspection of Upper Intestinal Tract, Via Natural or Artificial Opening Endoscopic (ICD-10-PCS; principal; 2018-03-05)
DX: K92.1 Melena (principal); K57.30 Diverticulosis of large intestine without perforation or abscess without bleeding; K22.2 Esophageal obstruction; K44.9 Diaphragmatic hernia without obstruction or gangrene; K29.80 Duodenitis without bleeding; Z86.010 Personal history of colon polyps; G47.33 Obstructive sleep apnea (adult) (pediatric); F41.8 Other specified anxiety disorders; E86.0 Dehydration; Z87.891 Personal history of nicotine dependence
CPT/HCPCS: 43235; 45378; 96360; 99285; G0378; J2704

== ENCOUNTER 2018-07-24 13:03 | Emergency (ER) | payer OTHER ==
[2018-07-24 13:16] VITALS: BP 141/82
--- NOTE | 2018-07-24 13:25 | EDPHY ---
H & P Time Seen by Provider: 07/24/18 13:16 HPI/ROS: CHIEF COMPLAINT: Pertussis exposure HISTORY OF PRESENT ILLNESS: 77-year-old man is exposed to pertussis, his son who has been living with him for the last 5 days was tested this week on Friday for cough and was found to be positive. The patient has no symptoms. Specifically he has no sore throat cough chest pain or shortness of breath or fever. Of note he and his son are planning to go to [facility] in 1 month and got his updated dpt shot 8 days ago. REVIEW OF SYSTEMS: Eye: No symptoms ENT: no sore throat Cardiac: no chest pain Pulmonary: no cough or SOB Abdomen: no abdominal pain Musculoskeletal: no back pain Skin: no rash Neuro: no headache Constitutional: no fever : no symptoms A comprehensive 10 point review of systems is otherwise negative aside from elements mentioned in the history of present illness. PAST MEDICAL HISTORY: Includes depression and anxiety, ankle replacement, cataract surgery, prostatic hypertrophy Social history: Exposure to pertussis through his son as noted above General Appearance: Alert and conversant, cooperative. Eyes: No scleral icterus. ENT, Mouth: Normal mucous membranes. Respiratory: Normal respiratory effort, breath sounds equal, lungs are clear to auscultation. No wheezing. Cardiovascular: Regular rate and rhythm. Gastrointestinal: Abdomen is soft and non tender. Neurological: Alert, normally conversant, ambulatory. Skin: Warm and dry, no rashes. Musculoskeletal: No peripheral edema. Psychiatric: Not agitated. Emergency Department course/MDM: Recent immunization update. Azithromycin discussed and consented. Standard post exposure prophylaxis initiated, with known exposure to confirmed case and no symptoms currently. Smoking Status: Former smoker Constitutional: Initial Vital Signs Temperature (C) 36.4 C 07/24/18 13:15 Heart Rate 80 07/24/18 13:15 Respiratory Rate 17 07/24/18 13:15 Blood Pressure 141/82 H 07/24/18 13:15 O2 Sat (%) 96 07/24/18 13:15 O2 Delivery Mode Room Air Allergies/Adverse Reactions: No Known Allergies Allergy (Verified 07/24/18 13:14) Home Medications: Medication Instructions Recorded Alfuzosin HCl [Alfuzosin HCl ER] 10 mg PO HS 03/05/18 Modafinil [Provigil 100 mg (*)] 50 - 100 mg PO DAILY PRN 03/05/18 clonazePAM [Klonopin (*)] 0.25 mg PO DAILY 03/05/18 clonazePAM [Klonopin (*)] 0.25 mg PO DAILY PRN 03/05/18 lamoTRIgine [LamICTAL 100 MG (*)] 100 mg PO HS 03/05/18 traZODone [traZODONE 100MG (*)] 200 mg PO HS 03/05/18 Pantoprazole Sodium [Protonix 40mg 40 mg PO BID #60 tab 03/06/18 (*)] Azithromycin [Zithromax] 250 mg PO DAILY #6 tab 07/24/18 MDM/Departure - Depart Disposition: Home, Routine, Self-Care Clinical Impression: Pertussis exposure Condition: Good Instructions: Azithromycin (By mouth) Additional Instructions: Take the azithromycin, this is standard post pertussis prophylaxis exposure. Prescriptions: Azithromycin [Zithromax] 250 mg PO DAILY #6 tab [facility]errals: [facility], [facility] [Other] - As per Instructions
== END 2018-07-24 13:34 | disposition home or self-care (01) ==
DX: Z20.818 Contact with and (suspected) exposure to other bacterial communicable diseases (principal)